=== PATIENT | male | born 1960 | race Two or more races ===

== ENCOUNTER 2021-10-02 07:46 | Outpatient (CLI) | payer OTHER | END 2021-10-02 08:03 | disposition home or self-care (01) | LOC: RAD 07:46 | PROVIDERS: ATTEND General Practice | DX: R10.9 Unspecified abdominal pain (principal); N40.0 Benign prostatic hyperplasia without lower urinary tract symptoms; C77.3 Secondary and unspecified malignant neoplasm of axilla and upper limb lymph nodes; R59.0 Localized enlarged lymph nodes; D17.21 Benign lipomatous neoplasm of skin and subcutaneous tissue of right arm; L04.2 Acute lymphadenitis of upper limb; R05.9 Cough, unspecified; M79.643 Pain in unspecified hand; M19.049 Primary osteoarthritis, unspecified hand; M15.1 Heberden's nodes (with arthropathy) ==